=== PATIENT | male | born 1970 | race Caucasian/White ===

== ENCOUNTER 2020-10-31 01:13 | Emergency (ER) | payer BC ==
[~2020-10-31] VITALS: Ht 182.9 cm; Wt 95.3 kg
[2020-10-31] MEDS ORDERED: ZOFRAN ODT 4 MG4 MG SL (07:19)
[2020-10-31] MEDS ORDERED: IBUPROFEN600 MG PO (07:19)
== END 2020-10-31 08:05 | disposition home or self-care (01) ==
LOC: ER1 01:13
DX: Z23 Encounter for immunization (principal); U07.1 COVID-19
CPT/HCPCS: 71045; 99284; M0243; U0002